=== PATIENT | male | born 1985 | race Caucasian/White ===

== ENCOUNTER 2020-07-30 10:26 | Outpatient (CLI) | payer SELFPAY ==
--- NOTE | 2020-07-30 10:36 | XRR_ITS ---
PROCEDURE INFORMATION: Exam: XR Cervical Spine, 2 or 3 Views Exam date and time: 07/30/2020 10:46 AM Age: 34 years old Clinical indication: Neck pain TECHNIQUE: Imaging protocol: XR of the cervical spine, 2 or 3 views. COMPARISON: No relevant prior studies available. FINDINGS: Vertebrae: Straightening of the normal cervical lordosis. posterior vertebral line and the spinal laminar line normal odontoid process normal no fracture Degenerative disc disease including disc space narrowing and early anterior osteophytes C6-C7. Soft tissues: Unremarkable. XR/XR cervical spine fl/ex [id number] IMPRESSION: Degenerative disc disease including disc space narrowing and early anterior osteophytes C6-C7.
== END 2020-07-30 10:27 | disposition home or self-care (01) ==
LOC: RAD 10:30
PROVIDERS: PCP Nurse Practitioner; Visit Provider Licensed Practical Nurse
DX: M50.323 Other cervical disc degeneration at C6-C7 level (principal)
CPT/HCPCS: 72040; 99203

== ENCOUNTER 2022-02-15 06:07 | Day surgery (SDC) | payer MEDICAID, SELFPAY ==
[2022-02-12 12:29] VITALS: BMI 20.2
[2022-02-15] VITALS (7 sets, daily range): BP systolic 106–115; BP diastolic 64–92; PULSE 69–82; RESP 16–18; TEMP 36.2–36.6; O2SAT 96–100
[2022-02-15] MEDS: sodium chloride 0.9% 1,000 ML 30 ML IV (06:45)
--- NOTE | 2022-02-15 06:52 | W.PM.OPSFHP ---
Same Day Surgery H&P Indication for Procedure/HPI DATE OF PROCEDURE: February 15, 2022 CHIEF COMPLAINT/INDICATIONFOR SURGICAL PROCEDURE: left inguinal hernia repair PREOP DIAGNOSIS: Left inguinal hernia PLANNED PROCEDURE: Operation Date: 02/15/22 07:40 Proposed Procedures p Inguinal Hernia Repair left/54926/K40.80 left inguinal hernia(Left) - Harshil Sevilla MD Medications/Allergies* Home Medications Medication Instructions Recorded Confirmed Type albuterol sulfate 90 mcg/actuation 2 puff INHALATION Q4H PRN gm 07/29/20 02/15/22 History aerosol inhaler fluticasone furoate 50 50 mcg INHALATION DAILY PRN each 07/29/20 02/15/22 History mcg/actuation blister powder for inhalation (Arnuity Ellipta) bupropion HCl 300 mg 24 hr tablet, 300 mg PO QAM 02/03/22 02/15/22 History extended release fluoxetine 10 mg capsule 10 mg PO DAILY 02/03/22 02/15/22 History Allergies/Adverse Reactions Allergy/AdvReac Type Severity Reaction Status Date / Time No Known Allergies Allergy Unverified 02/12/22 12:25 Current Medications: Generic Name Dose Route Start Last Admin Trade Name Freq PRN Reason Stop Dose Admin Sodium Chloride 1,000 mls @ 30 mls/hr 02/15/22 06:30 02/15/22 06:45 Sodium Chloride 0.9% IV 02/16/22 06:29 30 mls/hr .Q24H MOMO Administration Pertinent History/Comorbid Conditions* Medical History (Updated 02/04/22 @ 09:27 by Erlinda Mccain) Cervical disc disorder with myelopathy of mid-cervical region Psychiatric care Surgical History (Updated 07/30/20 @ 09:47 by Lidya Siegel APRN) No pertinent past surgical history Family History (Updated 07/30/20 @ 09:29 by Renae Dong LPN) Heart disease Mother Family/Other Social History Smoking and tobacco status: current every day smoker Alcohol intake: current Alcohol intake frequency: few times a week Household members: none Marital status: Single Current occupational status: employed Current occupation: Self Employeed History of recent travel: No Pertinent Exam Findings alert, oriented x 3 and regular rate & rhythm Recommendations Surgery/Procedure today Coding Level of Care Code Acute Special Librarian for g Kavita
--- NOTE | 2022-02-15 07:40 | ANES.PREANE2 ---
Pre-Anesthetic Assessment Height/Weight: Height 1.8 m Weight 65.771 kg Temp Pulse Resp BP Pulse Ox 97.5 F L 69 16 115/67 99 02/15/22 06:35 02/15/22 06:35 02/15/22 06:35 02/15/22 06:35 02/15/22 06:35 Preop Diagnosis: Left inguinal hernia Operation Date: 02/15/22 07:40 Proposed Procedures p Inguinal Hernia Repair left/[id number]/K40.80 left inguinal hernia(Left) - Harshil Sevilla MD Familial anesthetic complications: None Was Beta Saadia taken within 24 hours: N/A Was Clonidine taken within 24 hours: N/A Last intake: Intake Last Liquid Date 02/14/22 Last Liquid Time 20:00 Last Solid Date 02/14/22 Last Solid Time 20:00 Social Alcohol (Daily beer) and Tobacco Exam alert, oriented x 3, clear to auscultation bilaterally and regular rate & rhythm Airway Submandibular: within normal limits Cervical ROM: within normal limits Mallampati: Class II Dentition: chipped Comments: Comments: [facility] Chronic Obstructive Pulmonary Disease [facility] [place] Osteoarthritis/DJD Neuropsych Anxiety and Depression Anesthetic Plan ASA status: 2 Anesthesia: General Medications/Allergies Home Medications Medication Instructions Recorded Confirmed Last Taken Type albuterol sulfate 90 mcg/actuation 2 puff INHALATION Q4H PRN gm 07/29/20 02/15/22 Unknown History aerosol inhaler fluticasone furoate 50 50 mcg INHALATION DAILY PRN each 07/29/20 02/15/22 Unknown History mcg/actuation blister powder for inhalation (Arnuity Ellipta) bupropion HCl 300 mg 24 hr tablet, 300 mg PO QAM 02/03/22 02/15/22 02/15/22 History extended release fluoxetine 10 mg capsule 10 mg PO DAILY 02/03/22 02/15/22 02/15/22 History hydrocodone 5 mg-acetaminophen 325 1 tab PO Q6H PRN #20 tab 02/15/22 Unknown Rx mg tablet Allergies Allergy/AdvReac Type Severity Reaction Status Date / Time No Known Allergies Allergy Unverified 02/12/22 12:25 Current Medications Generic Name Dose Route Start Last Admin Trade Name Freq PRN Reason Stop Dose Admin Sodium Chloride 1,000 mls @ 30 mls/hr 02/15/22 06:30 02/15/22 06:45 Sodium Chloride 0.9% IV 02/16/22 06:29 30 mls/hr .Q24H MOMO Administration PFSH Anesthesia Medical History (Updated 02/04/22 @ 09:27 by Erlinda Mccain) Cervical disc disorder with myelopathy of mid-cervical region Psychiatric care Surgical History (Updated 02/15/22 @ 06:55 by Harshil Sevilla MD) Status post left inguinal hernia repair (02/15/22) Family History Mother Heart disease Family/Other Heart disease Social History Smoking and tobacco status: current every day smoker Alcohol intake: current Alcohol intake frequency: few times a week Household members: none Marital status: Single Current occupational status: employed Current occupation: Self Employeed History of recent travel: No Data Anesthesia Cardiac Studies: No Data to Display
--- NOTE | 2022-02-15 08:30 | P.OP_ITS ---
Operative Report Date of procedure: February 15, 2022 Pre-op diagnosis: Reducible left inguinal hernia Post-op diagnosis: Left direct inguinal hernia Procedure done: Laparoscopic total extraperitoneal repair of direct left inguinal hernia with Surgimax 3D mesh Pathology: none sent Surgeon: Harshil Sevilla Anesthesia: General Condition: stable Disposition: PACU Procedure: The patient was taken to the operating room and intubated under GA. After IV antibiotic was administered, the abdomen was prepped and draped in a sterile manner. Using a 15 blade, a 1.0 cm transverse incision was made infraumbi lically on the left side. Subcutaneous tissue was divided using electrocautery and the anterior rectus sheath divided using an 11 blade. The rectus muscle was retracted laterally and the extraperitoneal space identified. A 11 mm port was placed and 15 mm of pneumoperitoneum was created. A 10 mm 30? scope was introduced and the retrorectus space was opened using the camera up to the pubic symphysis and 5 mm ports were placed in the midline, one 2-fingerbreadths above the pubic symphysis and the other midway between these two ports under direct visualization. Blunt dissection was carried out to open up the tissue in the midline and to the pubic symphysis, which was identified. The dissection was then carried laterally where the iliopubic tract was identified. There was no femoral or obturator hernia but there was a direct hernia which was easily reduced. The inferior epigastric artery was identified and dissection was carried posterior to it and laterally, the space was opened up to the level of the umbilicus superior to the anterior superior iliac spine. I then proceeded to dissect out the spermatic cord and there was no indirect hernia noted . 15 x 10cm Surgimax 3D mesh was rolled and introduced through the 10 mm port and then rolled laterally and apposed well against the abdominal wall to cover the myopectineal orifice completely. 10 Cc of 0.5% Marcaine was infiltrated into the preperitoneal space. The extraperitoneal space was desufflated under direct visualization to ensure no slippage of hernial sac under the mesh. All ports were removed, the anterior rectus fascia at the infraumbilical port closed using figure of eight 0 Vicryl sutures, subcutaneous tissue approximated using 3-0 Vicryl sutures and skin at all three port sites were closed using running s ubcuticular 4-0 Monocryl sutures and Dermabond. 10 mL of 0.5% Marcaine was infiltrated at the port sites. The patient was stable throughout the procedure.
[2022-02-15] MEDS: HYDROcodone-acetaminophen 5-325 mg Tablet 1 TAB PO (09:40)
--- NOTE | 2022-02-15 14:08 | ANE.PACU2 ---
Inpatient post-anesthesia follow up: Airway intact: Yes Vital signs: Temperature 97.5 F Pulse Rate 69 Respiratory Rate 18 Blood Pressure 106/64 Pulse Oximetry 96 Oxygen Delivery Me thod Room Air Oxygen Flow Rate 6 Fraction of Inspir ed Oxygen Hydration adequate: Yes Nausea and vomiting: No Pain level: 2 Mental status: Baseline
== END 2022-02-15 09:52 | disposition home or self-care (01) ==
PROVIDERS: PCP Nurse Practitioner; Visit Provider Surgery
PROC: (CPT 49650; principal; 2022-02-15 07:30)
DX: K40.90 Unilateral inguinal hernia, without obstruction or gangrene, not specified as recurrent (principal); J44.9 Chronic obstructive pulmonary disease, unspecified; F41.9 Anxiety disorder, unspecified; F32.9 Major depressive disorder, single episode, unspecified; F17.210 Nicotine dependence, cigarettes, uncomplicated
CPT/HCPCS: 49650; 36410; C1781; J0330; J0690; J1100; J1885; J2250; J2370; J2405; J2710; J3010; J3490; J7030